=== PATIENT | female | born 1990 | race Caucasian/White ===

== ENCOUNTER 2018-06-16 14:17 | Emergency (ER) | payer OTHER ==
--- NOTE | 2018-06-16 15:21 | ER Document Report ---
ED Medical Screen (RME) - General Chief Complaint: Vaginal Bleeding Stated Complaint: VAGINAL BLEEDING Time Seen by Provider: 06/16/18 15:18 Mode of Arrival: Ambulatory Information source: Patient - HPI Patient complains to provider of: bleeding in Onset: Yesterday - pt is approx 6 wks who started with vaginal bleeding yesterday - Related Data Allergies/Adverse Reactions: No Known Allergies Allergy (Unverified 06/16/18 14:18) Past Medical History - Social History Chew tobacco use (# tins/day): No Frequency of alcohol use: None Drug Abuse: None Renal/ Medical History: Denies: Hx Peritoneal Dialysis Past Surgical History: Reports: Hx Gynecologic Surgery, Hx Oral Surgery Physical Exam - Vital signs Vitals: Temp Pulse Resp BP Pulse Ox 98.4 F 84 16 122/70 100 06/16/18 14:35 06/16/18 14:35 06/16/18 14:35 06/16/18 14:35 06/16/18 14:35 Course - Vital Signs Vital signs: Temp Pulse Resp BP Pulse Ox 98.4 F 84 16 122/70 100 06/16/18 14:35 06/16/18 14:35 06/16/18 14:35 06/16/18 14:35 06/16/18 14:35
[2018-06-16 15:51] LABS: ABSOLUTE EOSINOPHILS # (AUTO) 0.1 10^3/uL (0.0-0.6); ABSOLUTE LYMPHOCYTES (AUTO) 2.6 10^3/uL (0.5-4.7); ABSOLUTE MONOCYTES (AUTO) 0.4 10^3/uL (0.1-1.4); BASOPHILS % (AUTO) 0.4 % (0-2); EOSINOPHILS % (AUTO) 0.9 % (0-6); HEMATOCRIT 40.5 % (36.0-47.0); HEMOGLOBIN 14.5 g/dL (12.0-15.5); LYMPHOCYTES % (AUTO) 28.3 % (13-45); MEAN CORPUSCULAR HEMOGLOBIN 33.2 pg (27.0-33.4); MEAN CORPUSCULAR HGB CONC 35.7 g/dL (32.0-36.0); MEAN CORPUSCULAR VOLUME 93 fl (80-97); MONOCYTES % (AUTO) 4.2 % (3-13); PLATELET COUNT 241 10^3/uL (150-450); RED BLOOD COUNT 4.36 10^6/uL (3.72-5.28); RED CELL DISTRIBUTION WIDTH 13.2 % (11.5-14.0); SEGMENTED NEUTROPHILS % (AUTO) 66.2 % (42-78); TOTAL CELLS COUNTED % (AUTO) 100 %; WHITE BLOOD COUNT 9.1 10^3/uL (4.0-10.5)
[2018-06-16 16:02] LABS: APPEARANCE,URINE SLIGHTLY-CLOUDY; BILIRUBIN,URINE NEGATIVE (NEGATIVE); COLOR,URINE YELLOW; GLUCOSE, URINE NEGATIVE (NEGATIVE); KETONES,URINE NEGATIVE (NEGATIVE); LEUKOCYTE ESTERASE,URINE NEGATIVE (NEGATIVE); NITRITE,URINE NEGATIVE (NEGATIVE); PROTEIN,URINE NEGATIVE (NEGATIVE); URINE SPECIFIC GRAVITY 1.016; UROBILINOGEN,URINE NEGATIVE mg/dL (<2.0)
[2018-06-16 16:07] LABS: ALANINE AMINOTRANSFERASE 22 U/L (9-52); ALBUMIN 5.1 g/dL (3.5-5.0); ALKALINE PHOSPHATASE 39 U/L (38-126); ANION GAP 12 (5-19); ASPARTATE AMINO TRANSFERASE 18 U/L (14-36); BILIRUBIN,DIRECT 0.2 mg/dL (0.0-0.4); BILIRUBIN,TOTAL 0.9 mg/dL (0.2-1.3); BLOOD UREA NITROGEN 10 mg/dL (7-20); CALCIUM 10.3 mg/dL (8.4-10.2); CARBON DIOXIDE 25 mmol/L (22-30); CHLORIDE 103 mmol/L (98-107); GLUCOSE 88 mg/dL (75-110); POTASSIUM 3.9 mmol/L (3.6-5.0); SODIUM 140.4 mmol/L (137-145); TOTAL PROTEIN 8.1 g/dL (6.3-8.2)
--- NOTE | 2018-06-16 16:14 | RADIOLOGY REPORT (SQ) ---
EXAM DESCRIPTION: U/S OB TRANSVAG W/DOPPLER COMPLETED DATE/TIME: 06/16/2018 3:59 pm REASON FOR STUDY: bleeding in COMPARISON: None. TECHNIQUE: Endovaginal static and realtime grayscale images acquired of the pelvis. Additional selec ramya spectral and color Doppler images recorded. All images stored on PACs. bHCG: Pending CLINICAL DATES: Last menses 05/18/2018 LIMITATIONS: None. FINDINGS: Under intrauterine gestational sac is present with decidual reaction. Embryo and yolk sac not identified. By mean sac diameter, estimated gestational age is 5 weeks 3 days. This is concord ant with last menstrual period. SURVEY: Not performed AMNIOTIC FLUID: Adequate amount. PLACENTA: Not yet developed due to early gestation. SUBCHORIONIC BLEED: Not identified SIZE OF BLEED: Not applicable. UTERUS: No masses. No anomalies. Uterus is 10 x 5 x 6 cm in size CERVICAL LENGTH: 3 cm Closed. RIGHT ADNEXA: Normal ovary with normal vascular flow. Right ovary 2.8 x 2.7 x 2.8 cm in size. No ad nexal free fluid.No adnexal masses. LEFT ADNEXA: Normal ovary with normal vascular flow. Left ovary 3.6 x 3.1 x 2.9 cm in size. 15 mm h emorrhagic cyst left ovary likely the corpus luteum. No adnexal free fluid.No adnexal masses. FREE FLUID: None. OTHER: No other significant finding. IMPRESSION: Intrauterine gestational sac with surrounding decidual reaction, estimated age by mean s ac diameter is 5 weeks 3 days. Probable left ovary corpus luteum Trimester of : First - 0 to 13 weeks. TECHNICAL DOCUMENTATION: JOB ID: [id number] [employer]- All Rights Reserved rev Reading location - IP/workstation name: [email or web address]
[2018-06-16 17:06] VITALS: BP 112/74
--- NOTE | 2018-07-07 10:17 | ER Document Report ---
ED GI/ - General Chief Complaint: Vaginal Bleeding Stated Complaint: VAGINAL BLEEDING Time Seen by Provider: 06/16/18 15:18 Mode of Arrival: Ambulatory - [facility] Patient complains to provider of: - Pt is approx 6 wks who noticed some vaginal bleeding yesterday. Denies pain - Related Data Allergies/Adverse Reactions: No Known Allergies Allergy (Unverified 06/16/18 14:18) Past Medical History - General Information source: Patient - Social History Smoking Status: Never Smoker Chew tobacco use (# tins/day): No Frequency of alcohol use: None Drug Abuse: None Family History: None Patient has suicidal ideation: No Patient has homicidal ideation: No Renal/ Medical History: Denies: Hx Peritoneal Dialysis Past Surgical History: Reports: Hx Gynecologic Surgery, Hx Oral Surgery Review of Systems - Review of Systems Constitutional: No symptoms reported EENT: No symptoms reported Cardiovascular: No symptoms reported Respiratory: No symptoms reported Gastrointestinal: No symptoms reported Female Genitourinary: See HPI, , Vaginal bleeding -: Yes All other systems reviewed and negative Physical Exam - Vital signs Vitals: Temp Pulse Resp BP Pulse Ox 98.4 F 84 16 122/70 100 06/16/18 14:35 06/16/18 14:35 06/16/18 14:35 06/16/18 14:35 06/16/18 14:35 - General General appearance: Appears well In distress: None - Respiratory Respiratory status: No respiratory distress Breath sounds: Normal - Cardiovascular Rhythm: Regular Heart sounds: Normal auscultation - Abdominal Distension: No distension Tenderness: Nontender Organomegaly: No organomegaly - Genitourinary External exam: Other Speculum exam: Other Course - Vital Signs Vital signs: Temp Pulse Resp BP Pulse Ox 97.9 F 68 16 112/74 100 06/16/18 16:58 06/16/18 16:58 06/16/18 16:58 06/16/18 16:58 06/16/18 16:58 - Laboratory Result Diagrams: 06/16/18 15:30 06/16/18 15:30 Laboratory results interpreted by me: 06/16/18 06/16/18 15:30 15:30 Calcium 10.3 H Albumin 5.1 H Beta HCG, Quant 2349.70 H Urine Ascorbic Acid 40 H - Diagnostic Test Radiology reviewed: Reports reviewed - normal iup Discharge - Discharge Clinical Impression: Threatened , Vaginal bleeding in Condition: Stable Disposition: HOME, SELF-CARE Instructions: Bleeding During Early ([facility]), Ob-Environmental Construction Engineer Doctors, ([facility]), Rhogam ([facility]), Threatened Miscarriage ([facility]) Additional Instructions: rest, return for increased bleeding or pain Referrals: STEVEN BARAJAS MD [ACTIVE STAFF] - Follow up as needed
== END 2018-06-16 17:06 | disposition home or self-care (01) ==
LOC: ER 14:17
DX: O20.0 Threatened abortion (principal); Z3A.00 Weeks of gestation of pregnancy not specified
CPT/HCPCS: 99284; 96372; 86900; 86901; 36415; 86850; 84702; 85025; 80053; 81001; 76817; 93976; J2790

== ENCOUNTER 2018-06-23 21:08 | Emergency (ER) | payer OTHER ==
[2018-06-23 22:30] LABS: ABSOLUTE EOSINOPHILS # (AUTO) 0.1 10^3/uL (0.0-0.6); ABSOLUTE LYMPHOCYTES (AUTO) 2.3 10^3/uL (0.5-4.7); ABSOLUTE MONOCYTES (AUTO) 0.4 10^3/uL (0.1-1.4); ABSOLUTE NEUT (AUTO) 5.5 10^3/uL (1.7-8.2); BASOPHILS % (AUTO) 0.4 % (0-2); EOSINOPHILS % (AUTO) 1.4 % (0-6); HEMATOCRIT 37.8 % (36.0-47.0); HEMOGLOBIN 13.5 g/dL (12.0-15.5); LYMPHOCYTES % (AUTO) 27.7 % (13-45); MEAN CORPUSCULAR HEMOGLOBIN 33.2 pg (27.0-33.4); MEAN CORPUSCULAR HGB CONC 35.6 g/dL (32.0-36.0); MEAN CORPUSCULAR VOLUME 93 fl (80-97); MONOCYTES % (AUTO) 4.6 % (3-13); PLATELET COUNT 230 10^3/uL (150-450); RED BLOOD COUNT 4.05 10^6/uL (3.72-5.28); RED CELL DISTRIBUTION WIDTH 12.9 % (11.5-14.0); SEGMENTED NEUTROPHILS % (AUTO) 65.9 % (42-78); TOTAL CELLS COUNTED % (AUTO) 100 %; WHITE BLOOD COUNT 8.3 10^3/uL (4.0-10.5)
[2018-06-23 22:50] LABS: ALANINE AMINOTRANSFERASE 12 U/L (9-52); ALBUMIN 4.9 g/dL (3.5-5.0); ALKALINE PHOSPHATASE 44 U/L (38-126); ANION GAP 14 (5-19); ASPARTATE AMINO TRANSFERASE 17 U/L (14-36); BILIRUBIN,DIRECT 0.1 mg/dL (0.0-0.4); BILIRUBIN,TOTAL 0.5 mg/dL (0.2-1.3); BLOOD UREA NITROGEN 11 mg/dL (7-20); CALCIUM 9.8 mg/dL (8.4-10.2); CARBON DIOXIDE 24 mmol/L (22-30); CHLORIDE 101 mmol/L (98-107); GLUCOSE 89 mg/dL (75-110); LIPASE 245.4 U/L (23-300); SODIUM 138.7 mmol/L (137-145); TOTAL PROTEIN 7.7 g/dL (6.3-8.2)
--- NOTE | 2018-06-23 23:22 | RADIOLOGY REPORT (SQ) ---
CLINICAL HISTORY: eval possible ongoing ab COMPARISON: None. TECHNIQUE: US TRANSVAGINAL, US TRANSVAGINAL on 06/23/2018 10:20 PM CDT FINDINGS: Cervix is closed measuring 7 cm. Uterus contains a gestational sac as well as a pole which measures 0.43cm, corresponding to six weeks one day. heart tones are present with a rate of 117 bpm. Ovaries are unremarkable with patent flow bilaterally. IMPRESSION: Single live intrauterine gestation measuring six weeks one day with a heart rate of 117 bpm.
--- NOTE | 2018-06-23 23:48 | ER Document Report ---
ED General - General Chief Complaint: Vag Bleeding, +preg <12wks Stated Complaint: VAGINAL BLEEDING Time Seen by Provider: 06/23/18 22:19 Notes: Patient is a 27-year-old female at approximately 6 weeks by LMP who presents with heavy vaginal bleeding that started approximately 3 hours prior to arrival. She denies any associated abdominal pain. She was seen in the emergency department approximately 1 week ago for the same, given RhoGam as she is Rh-. She states that she had not had any additional bleeding until tonight. She has not established care for this . Nothing seems to improve or worsen her symptoms. She denies fever or constitutional symptoms. No dysuria. TRAVEL OUTSIDE OF THE [place] IN LAST 30 DAYS: No - Related Data Allergies/Adverse Reactions: No Known Allergies Allergy (Unverified 06/16/18 14:18) Past Medical History - General Information source: Patient - Social History Smoking Status: Never Smoker Frequency of alcohol use: None Drug Abuse: None Lives with: Family Family History: Reviewed & Not Pertinent Patient has suicidal ideation: No Patient has homicidal ideation: No Renal/ Medical History: Denies: Hx Peritoneal Dialysis Past Surgical History: Reports: Hx Gynecologic Surgery, Hx Oral Surgery Review of Systems - Review of Systems Notes: Constitutional: Negative for fever. HENT: Negative for sore throat. Eyes: Negative for visual changes. Cardiovascular: Negative for chest pain. Respiratory: Negative for shortness of breath. Gastrointestinal: Negative for abdominal pain, vomiting or diarrhea. Genitourinary: Positive for vaginal bleeding Musculoskeletal: Negative for back pain. Skin: Negative for rash. Neurological: Negative for headaches, weakness or numbness. 10 point ROS negative except as marked above and in HPI. Physical Exam - Vital signs Vitals: Temp Pulse Resp BP Pulse Ox 99.0 F 67 18 126/69 H 100 06/23/18 21:33 06/23/18 21:33 06/23/18 21:33 06/23/18 21:33 06/23/18 21:33 Interpretation: Normal Notes: PHYSICAL EXAMINATION: GENERAL: Well-appearing, well-nourished and in no acute distress. HEAD: Atraumatic, normocephalic. EYES: Pupils equal round and reactive to light, extraocular movements intact, sclera anicteric, conjunctiva are normal. ENT: nares patent, oropharynx clear without exudates. Moist mucous membranes. NECK: Normal range of motion, supple without lymphadenopathy LUNGS: Breath sounds clear to auscultation bilaterally and equal. No wheezes rales or rhonchi. HEART: Regular rate and rhythm without murmurs ABDOMEN: Soft, nontender, normoactive bowel sounds. No guarding, no rebound. No masses appreciated. EXTREMITIES: Normal range of motion, no pitting or edema. No cyanosis. NEUROLOGICAL: No focal neurological deficits. Moves all extremities spontaneously and on command. PSYCH: Normal mood, normal affect. SKIN: Warm, Dry, normal turgor, no rashes or lesions noted. Course - Re-evaluation Re-evalutation: 06/23/18 23:47 Patient presents with a mild amount of vaginal bleeding in the setting of a first trimester . Ultrasound does demonstrate a viable intrauterine with active heart rate. No active bleeding at time of presentation. She is Rh negative but has already received RhoGam within the past 12 weeks. I did confirm with the ROLLER INSPECTOR AND MENDER that Rhogam does not need to be readministered today patient's abdominal exam is otherwise benign without any focal tenderness. I do not suspect an acute appendicitis, pyelonephritis, cystitis, or bowel obstruction. At this time will discharge with return precautions and follow-up recommendations. Verbal discharge instructions given a the bedside and opportunity for questions given. Medication warnings reviewed. Patient is in agreement with this plan and has verbalized understanding of return precautions and the need for primary care follow-up in the next 24-72 hours. - Vital Signs Vital signs: Temp Pulse Resp BP Pulse Ox 98.0 F 75 18 118/67 100 06/24/18 00:16 06/24/18 00:16 06/24/18 00:16 06/24/18 00:16 06/24/18 00:16 - Laboratory Result Diagrams: 06/23/18 22:06 06/23/18 22:06 Laboratory results interpreted by me: 06/23/18 22:06 Beta HCG, Quant 97050.00 H - Diagnostic Test Radiology reviewed: Reports reviewed Discharge - Discharge Clinical Impression: Threatened , Bleeding in early Condition: Good Disposition: HOME, SELF-CARE Additional Instructions: Your ultrasound today shows a living intrauterine . Please follow closely with your primary care ROLLER INSPECTOR AND MENDER. Please return if you develop severe abdominal pain, bleeding that goes through more than 2 pads for more than 2 hours, pass out, or have any other symptoms that are concerning to you. Please follow-up closely with your OBGYN regarding todays visit. Forms: Return to School, Return to Work Referrals: OSCAR DYSON PA-C [Primary Care Provider] - Follow up as needed
[2018-06-24 00:17] VITALS: BP 118/67
== END 2018-06-24 00:20 | disposition home or self-care (01) ==
LOC: ER 21:08
DX: O20.0 Threatened abortion (principal); Z3A.01 Less than 8 weeks gestation of pregnancy
CPT/HCPCS: 36415; 76817; 80053; 83690; 84702; 85025; 99284

== ENCOUNTER 2018-10-12 12:50 | Emergency (ER) | payer OTHER ==
[2018-10-12 13:36] VITALS: BP 116/61
== END 2018-10-12 14:21 | disposition left against medical advice (07) ==
LOC: EDSTATUS 12:50 → ER 12:50
DX: Z53.21 Procedure and treatment not carried out due to patient leaving prior to being seen by health care provider (principal)

== ENCOUNTER → 2018-10-12 | Outpatient (CLI) | payer OTHER ==
--- NOTE | 2018-10-12 16:04 | RADIOLOGY REPORT (SQ) ---
EXAM DESCRIPTION: VENOUS UNILATERAL LOWER COMPLETED DATE/TIME: 10/12/2018 3:52 pm REASON FOR STUDY: LLE PAIN AND REDNESS M79.605 PAIN IN LEFT LEG COMPARISON: None. TECHNIQUE: Dynamic and static hanks scale and color images acquired of the left leg venous system. Se lected spectral images acquired with additional compression and augmentation maneuvers. The contralat eral common femoral vein and saphenofemoral junction were also imaged. Images stored on PACS. LIMITATIONS: None. FINDINGS: COMMON FEMORAL: Normal phasicity, compression and augmentation. No visualized echogenic ma terial on hanks scale. No defects on color images. FEMORAL: Normal compression and augmentation. No visualized echogenic material on hanks scale. No defe cts on color images. POPLITEAL: Normal compression, augmentation. No visualized echogenic material on hanks scale. No defec ts on color images. CALF VESSELS: Normal compression, augmentation. No visualized echogenic material on hanks scale. No de fects on color images. GSV and SSV: Normal compression, augmentation. No visualized echogenic material on hanks scale. No def ects on color images. ANY DEEP VENOUS INSUFFICIENCY: Not evaluated. ANY EVIDENCE OF POPLITEAL CYST: No. OTHER: No other significant finding. CONTRALATERAL COMMON FEMORAL VEIN AND SAPHENOFEMORAL JUNCTION: Normal phasicity, compression and augmentation. No visualized echogenic material on hanks scale. No de fects on color images. IMPRESSION: NO EVIDENCE DVT OR SVT IN THE LEFT LEG. TECHNICAL DOCUMENTATION: JOB ID: [id number] [employer]- All Rights Reserved Reading location - IP/workstation name: [email or web address]
== END ==
LOC: SP 16:18
PROVIDERS: ATTEND Specialist
DX: M79.605 Pain in left leg (principal)
CPT/HCPCS: 93971

== ENCOUNTER 2018-12-22 15:36 | Outpatient (CLI) | payer OTHER ==
[2018-12-22 16:24] LABS: APPEARANCE,URINE CLOUDY; BILIRUBIN,URINE NEGATIVE (NEGATIVE); COLOR,URINE YELLOW; GLUCOSE, URINE NEGATIVE (NEGATIVE); KETONES,URINE NEGATIVE (NEGATIVE); LEUKOCYTE ESTERASE,URINE LARGE (NEGATIVE); NITRITE,URINE NEGATIVE (NEGATIVE); PROTEIN,URINE NEGATIVE (NEGATIVE); URINE SPECIFIC GRAVITY 1.008; UROBILINOGEN,URINE NEGATIVE mg/dL (<2.0)
[2018-12-22 16:35] LABS: URINE AMPHETAMINES SCREEN NEGATIVE; URINE BARBITURATES SCREEN NEGATIVE; URINE BENZODIAZEPINES SCREEN NEGATIVE; URINE COCAINE SCREEN NEGATIVE; URINE MARIJUANA (THC) SCREEN NEGATIVE; URINE METHADONE SCREEN NEGATIVE; URINE PHENCYCLIDINE SCREEN NEGATIVE
--- NOTE | 2018-12-22 16:50 | RADIOLOGY REPORT (SQ) ---
EXAM DESCRIPTION: U/S OB LIMITED COMPLETED DATE/TIME: 12/22/2018 4:41 pm REASON FOR STUDY: Cervical length to r/o labor COMPARISON: None. TECHNIQUE: Limited transvaginal grayscale ultrasound for evaluation of specific requested obstetrica l parameters. LIMITATIONS: None. FINDINGS: CERVICAL LENGTH: 3.6 cm Closed. CAMPOS: 7.1 cm. FHR: 163 beats per minute. PRESENTATION: Cephalic. PLACENTA: Anterior ANATOMY: Not assessed OTHER: No other significant findings. IMPRESSION: LIMITED OBSTETRICAL ULTRASOUND WITH MEASURED PARAMETERS DELINEATED ABOVE. Trimester of : Third trimester - 28 weeks to delivery. TECHNICAL DOCUMENTATION: JOB ID: [id number] [employer]- All Rights Reserved Reading location - IP/workstation name: [email or web address]
--- NOTE | 2018-12-22 17:11 | Non Stress Test Report ---
Non Stress Test Datetime Report Generated by CPN: 12/22/2018 17:10 DEMOGRAPHIC EGA NST: 32.3 INDICATION Indication for Study: Ordered by Provider MONITORING Monitor Explained: Monitor Explained; Test Explained; Patient Verbalized Understanding Time on Monitor: 12/22/2018 15:50 Time off Monitor: 12/22/2018 16:15 NST Duration: 25 NST INTERVENTIONS NST Interventions: PO Hydration Physician Notified NST: Dr. Humphries BABY A: [id number] BABY A Movement : Present Contraction Frequency : None FHR Baseline : 140 Accelerations : 15X15 Decelerations : None Variability : Moderate 6-25bpm NST Review: Meets Criteria for Reactive NST NST Review and Verified By : NEPTALI LUO RN NST Results: Reactive NST REPORT Report Trigger: Send Report
== END 2018-12-22 17:19 | disposition home or self-care (01) ==
LOC: LC 15:36
PROVIDERS: ATTEND Obstetrics & Gynecology Gynecology
PROC: 4A1HXCZ Monitoring of Products of Conception, Cardiac Rate, External Approach (ICD-10-PCS; principal; 2018-12-22)
DX: O47.03 False labor before 37 completed weeks of gestation, third trimester (principal); Z3A.32 32 weeks gestation of pregnancy
CPT/HCPCS: 59025; 76815; 80307; 81001

== ENCOUNTER 2019-02-13 10:13 | Outpatient (CLI) | payer OTHER ==
[2019-02-13 10:42] LABS: APPEARANCE,URINE CLOUDY; BILIRUBIN,URINE NEGATIVE (NEGATIVE); COLOR,URINE YELLOW; GLUCOSE, URINE NEGATIVE (NEGATIVE); KETONES,URINE NEGATIVE (NEGATIVE); LEUKOCYTE ESTERASE,URINE SMALL (NEGATIVE); NITRITE,URINE NEGATIVE (NEGATIVE); PROTEIN,URINE NEGATIVE (NEGATIVE); URINE SPECIFIC GRAVITY 1.013; UROBILINOGEN,URINE NEGATIVE mg/dL (<2.0)
[2019-02-13 11:03] LABS: URINE AMPHETAMINES SCREEN NEGATIVE; URINE BARBITURATES SCREEN NEGATIVE; URINE BENZODIAZEPINES SCREEN NEGATIVE; URINE COCAINE SCREEN NEGATIVE; URINE MARIJUANA (THC) SCREEN NEGATIVE; URINE METHADONE SCREEN NEGATIVE; URINE PHENCYCLIDINE SCREEN NEGATIVE
--- NOTE | 2019-02-13 11:13 | Non Stress Test Report ---
Non Stress Test Datetime Report Generated by CPN: 02/13/2019 11:13 DEMOGRAPHIC Test Number: 3 EGA NST: 40.1 INDICATION Indication for Study: Ordered by Provider MONITORING Monitor Explained: Monitor Explained; Test Explained; Patient Verbalized Understanding Time on Monitor: 02/13/2019 10:31 Time off Monitor: 02/13/2019 10:53 NST Duration: 22 NST INTERVENTIONS NST Interventions: PO Hydration Physician Notified NST: K. Cam, CNM BABY A: [id number] BABY A Movement : Present Contraction Frequency : none FHR Baseline : 140 Accelerations : 15X15 Decelerations : None Variability : Moderate 6-25bpm NST Review: Meets Criteria for Reactive NST NST Review and Verified By : Tennille Camp RNC NST Results: Reactive NST REPORT Report Trigger: Send Report
== END 2019-02-13 11:01 | disposition home or self-care (01) ==
LOC: LC 10:13
PROVIDERS: ATTEND Student in an Organized Health Care Education/Training Program
PROC: 4A1HXCZ Monitoring of Products of Conception, Cardiac Rate, External Approach (ICD-10-PCS; principal; 2019-02-13)
DX: O47.1 False labor at or after 37 completed weeks of gestation (principal); O48.0 Post-term pregnancy; Z3A.40 40 weeks gestation of pregnancy
CPT/HCPCS: 59025; 80307; 81005; 84112

== ENCOUNTER 2019-02-15 09:02 | Inpatient (IN) | payer OTHER ==
[2019-02-15] MEDS ORDERED: RINGERS SOLUTION,LACTATED 300 ML IV ONE (09:26)
[2019-02-15] MEDS ORDERED: OXYTOCIN/NORMAL SALINE 20 UNIT/1,000 ML RTUINJ IV PRN ×2 (09:26→17:05)
[2019-02-15] MEDS ORDERED: OXYTOCIN 10 UNIT/ML VIAL ONE (10:03)
[2019-02-15] MEDS ORDERED: MISOPROSTOL 0.2 MG TABLET ONE (10:04)
[2019-02-15] MEDS ORDERED: OXYTOCIN/NORMAL SALINE 20 UNIT/1,000 ML RTUINJ ONE (10:04)
[2019-02-15] MEDS ORDERED: LIDOCAINE 1% INJ-PF (10 MG/ML) 30 ML SDV ONE (10:04)
[2019-02-15 10:07] LABS: ABSOLUTE EOSINOPHILS # (AUTO) 0.1 10^3/uL (0.0-0.6); ABSOLUTE LYMPHOCYTES (AUTO) 1.6 10^3/uL (0.5-4.7); ABSOLUTE MONOCYTES (AUTO) 0.4 10^3/uL (0.1-1.4); ABSOLUTE NEUT (AUTO) 7.3 10^3/uL (1.7-8.2); BASOPHILS % (AUTO) 0.5 % (0-2); EOSINOPHILS % (AUTO) 0.7 % (0-6); HEMATOCRIT 34.2 % (36.0-47.0); HEMOGLOBIN 12.1 g/dL (12.0-15.5); MEAN CORPUSCULAR HGB CONC 35.5 g/dL (32.0-36.0); MEAN CORPUSCULAR VOLUME 96 fl (80-97); MONOCYTES % (AUTO) 4.4 % (3-13); PLATELET COUNT 139 10^3/uL (150-450); RED BLOOD COUNT 3.57 10^6/uL (3.72-5.28); SEGMENTED NEUTROPHILS % (AUTO) 77.4 % (42-78); TOTAL CELLS COUNTED % (AUTO) 100 %; WHITE BLOOD COUNT 9.4 10^3/uL (4.0-10.5)
[2019-02-15 10:25] LABS: APPEARANCE,URINE CLEAR; BILIRUBIN,URINE NEGATIVE (NEGATIVE); COLOR,URINE YELLOW; GLUCOSE, URINE NEGATIVE (NEGATIVE); KETONES,URINE NEGATIVE (NEGATIVE); LEUKOCYTE ESTERASE,URINE NEGATIVE (NEGATIVE); NITRITE,URINE NEGATIVE (NEGATIVE); PROTEIN,URINE NEGATIVE (NEGATIVE); URINE SPECIFIC GRAVITY 1.016; UROBILINOGEN,URINE NEGATIVE mg/dL (<2.0)
[2019-02-15] MEDS: RINGERS SOLUTION,LACTATED 1,000 ML IV PRN ×2 (10:35→14:43)
[2019-02-15 10:43] LABS: URINE AMPHETAMINES SCREEN NEGATIVE; URINE BARBITURATES SCREEN NEGATIVE; URINE BENZODIAZEPINES SCREEN NEGATIVE; URINE COCAINE SCREEN NEGATIVE; URINE MARIJUANA (THC) SCREEN NEGATIVE; URINE METHADONE SCREEN NEGATIVE; URINE PHENCYCLIDINE SCREEN NEGATIVE
--- NOTE | 2019-02-15 11:35 | Admission Physical ---
Datetime Report Generated by CPN: 02/15/2019 11:35 CURRENT ADMISSION Hx Assessment: The History has been Reviewed and is Current Chief Complaint: Scheduled Induction of Labor Indication for Induction: Postterm Admit Impression : Postterm, Intrauterine ; No Active Labor; Intact Membranes; Induction of Labor Admit Plan: Admit to Unit; Initiate Labor Induction Protocol ALLERGIES Medication Allergies: No Medication Allergies: cinnamon (02/15/2019); peach (02/15/2019) Latex: No Latex Allergies Food Allergies: CINNAMON, PEACHES OBSTETRICAL HISTORY EDC: 02/12/2019 00:00 : 5 Para: 1 Term: 1 : 0 SAB: 3 IAB: 0 Ectopic: 0 Livin Cesareans: 0 VBACs: 0 Multiple Births: 0 Gestational Diabetes: No Rh Sensitization: No Incompetent Cervix: No JD: No Infertility: No ART Treatment: No Uterine Anomaly: No IUGR: No Hx Previous C/S: No Macrosomia: No Hx Loss/Stillborn: No PIH: No Hx : No Placenta Previa/Abruption: No Depression/PP Depression: No PTL/PROM: No Post Hemorrhage: No Current Procedures: Ultrasound; NST Obstetrical History Comments: G1 - 2009, 38 weeks, baby boy G2 - Current SEE RECORDS Alcohol: No Marijuana : No Cocaine: No Other Illicit Drugs: No Cigarettes: Never Smoker. [id number] MEDICAL HISTORY Diabetes: No Blood Transfusion: No Pulmonary Disease (Asthma, TB): No Breast Disease: No Hypertension: No Gastroenterology Nurse Practitioner Surgery: No Heart Disease: No Hosp/Surgery: No Autoimmune Disorder: No Anesthetic Complications: No Kidney Disease: No Abnormal Pap Smear: Yes Neuro/Epilepsy: No Psychiatric Disorders: No Other Medical Diseases: No Hepatitis/Liver Disease: No Significant Family History: No Varicosities/Phlebitis: No Trauma/Violence : No Thyroid Dysfunction: No Medical History Comments: Abnormal pap 2017 INFECTIOUS HISTORY Gonorrhea: No Genital Herpes: No Chlamydia: Yes Tuberculosis: No Syphilis: No Hepatitis: No HIV/AIDS Exposure: No Rash or Viral Illness: No HPV: No Infectious History Comments: Chlamydia 4-5 years ago PHYSICAL EXAM General: Normal HEENT: Deferred Neurologic: Normal Thyroid: Normal Heart: Normal Lungs: Normal Breast: Deferred Back: Normal Abdomen: Normal Genitourinary Exam: Normal Extremities: Deferred DTRs: Normal Pelvic Type: Adequate Physical Exam Comments: Low Vit D Desires BTL RH neg Vital Signs: Reviewed MEMBRANES Membranes: Intact FETUS A EGA: 40.3 Monitoring: External US Variability: Moderate 6-25bpm Decelerations: None FHR Category: Category I Admit Comment: admitted to LD for IOL for post dates Cat 1 strip, uc's q 3 min Discussed POC, does not want epidural, Pitocin infusing PLANS FOR LABOR AND DELIVERY Labor and Delivery: Plan Pain Management: None Feeding Preference: Breast Benefit of Breast Feed Discussed: Yes Circumcision: N/A INFORMED CONSENT Assignment: Emmett Humphries MD Signature: with User ID: [email or web address] : with User ID: [email or web address]
[2019-02-15] MEDS ORDERED: FENTANYL/BUPIVACAINE/NS/PF 300 MCG/150 ML RTUINJ EPI ONE (15:11)
[2019-02-15] MEDS ORDERED: EPHEDRINE SULFATE INJ 50 MG/1 ML AMPULE ONE (15:11)
[2019-02-15] MEDS ORDERED: BUPIVACAINE HCL 0.25 % INJ/PF (2.5 MG/1 ML) 30 ML VIAL ONE (15:11)
[2019-02-15] MEDS ORDERED: PROMETHAZINE HCL 25 MG SUPP.RECT PR PRN (17:05)
[2019-02-15] MEDS ORDERED: MAGNESIUM HYDROXIDE SUSP 30 ML UDCUP PO PRN (17:05)
[2019-02-15] MEDS ORDERED: DIBUCAINE 1% OINTMENT 56 GM TP PRN (17:05)
[2019-02-15] MEDS ORDERED: GLYCERIN/WITCH HAZEL LEAF 1 EACH MED..WIPE TP PRN (17:05)
[2019-02-15] MEDS ORDERED: ACETAMINOPHEN 650 MG SUPP.RECT PR PRN (17:05)
[2019-02-15] MEDS ORDERED: NA PHOS,M-B/NA PHOS,DI-BA (ADULT) 133 ML ENEMA PR PRN (17:05)
[2019-02-15] MEDS ORDERED: BENZOCAINE/MENTHOL AEROSOL SPRAY 56 ML TOP PRN (17:05)
[2019-02-15] MEDS ORDERED: DIPHENHYDRAMINE HCL 25 MG CAPSULE PO PRN (17:05)
[2019-02-15] MEDS ORDERED: DIPH/PERTUSS(ACELL)/TETANUS VAC/PF 0.5 ML SYR (>=10YO) IM PRN (17:05)
[2019-02-15] MEDS ORDERED: PROMETHAZINE HCL 25 MG TABLET PO PRN (17:05)
[2019-02-15] MEDS ORDERED: PSEUDOEPHEDRINE HCL 30 MG TABLET PO PRN (17:05)
[2019-02-15] MEDS ORDERED: MEASLES,MUMPS&RUBELLA VACC/PF 0.5 ML VIAL SUBCUT PRN (17:05)
[2019-02-15] MEDS ORDERED: PROMETHAZINE HCL INJ 25 MG/1 ML VIAL IV PRN (17:05)
[2019-02-15] MEDS ORDERED: PROMETHAZINE HCL 25 MG TABLET ONE (18:01)
--- NOTE | 2019-02-15 19:16 | Delivery Summary ---
Del Sum A-C Datetime Report Generated by CPN: 02/15/2019 19:16 DELIVERY PERSONNEL DELIVERY PERSONNEL: [id number] Delivery Doctor:: Jeny Sánchez CNM Nurse National Accounts Sales Certified:: Jeny Sánchez CNM Labor and Delivery Nurse:: MARCELLA Miranda Labor and Delivery Nurse:: MARCELLA Garnica Pharmacy Tech/SUPERVISOR [employer]: Carolyn Semar, IRONWORKER WIRE FENCE ERECTOR MATERNAL INFORMATION Delivery Anesthesia: Epidural Medications After Delivery: Pitocin Drip 20 Units/1000ml NSS Estimated Blood Loss (ml): 400 Maternal Complications: None Provider Comments: vible female from OA to ELVIA, delivered post arm and then delivery of , placed on mothers abd, cord clamped and cut by FOB, cord blood obtained, spont delivery of grossly nl intact placenta, 3 VC, superficial lacerations, FFFM, uterine masssage and IV Pitocin, baby and mom remain in recovery in stable condition LABOR SUMMARY EDC: 02/12/2019 00:00 No. Babies in Womb: 1 Labor Anesthesia: Epidural LABOR INFORMATION Reason for Induction: Not Applicable Onset of Labor: 02/15/2019 11:00 Complete Dilatation: 02/15/2019 16:40 Oxytocin: Induction Group B Beta Strep: neg Antibiotics # of Doses: 0 Antibiotics Time of Last Dose: 0 Name of Antibiotic Given: 0 Steroids Given: None Reason Steroids Not Administered: Not Applicable MEMBRANES Membranes Rupture Method: Artificial Rupture of Membranes: 02/15/2019 14:49 Length of Rupture (hr): 1.98 Amniotic Fluid Color: Clear Amniotic Fluid Amount: Small Amniotic Fluid Odor: Normal STAGES OF LABOR Stage 1 hr: 5 Stage 1 min: 40 Stage 2 hr: 0 Stage 2 min: 8 Stage 3 hr: 0 Stage 3 min: 4 Total Time in Labor hr: 5 Total Time in Labor min: 52 VAGINAL DELIVERY Episiotomy: None Laceration #1: None Laceration Extension #1: N/A Laceration Repair: Not Applicable Sponge Count Correct: N/A BABY A INFORMATION Delivery Date/Time: 02/15/2019 16:48 Method of Delivery: Vaginal Born in Route : No : N/A Forceps: N/A Vacuum Extraction: N/A Shoulder Dystocia : No PRESENTATION/POSITION BABY A Presentation: Cephalic Cephalic Presentation: Vertex Vertex Position: Left Occipital Anterior Breech Presentation: N/A PLACENTA INFORMATION BABY A Placenta Delivery Time : 02/15/2019 16:52 Placenta Method of Delivery: Spontaneous Placenta Status: Delivered SCORES BABY A Heart Rate 1 min: >100 bpm Resp Effort 1 min: Good Cry Reflex Irritability 1 min: Cough or Sneeze or Pulls Away Muscle Tone 1 min: Active Motion Color 1 min: Blue/Pale Resuscitation Effort 1 min: Tactile Stimulation SCORE 1 MIN: 8 Heart Rate 5 min: >100 bpm Resp Effort 5 min: Good Cry Reflex Irritability 5 min: Cough or Sneeze or Pulls Away Muscle Tone 5 min: Active Motion Color 5 min: Body Arpin, Extremities Blue SCORE 5 MIN: 9 INFANT INFORMATION BABY A Gestational Age at Delivery: 40.3 Gestational Status: Full Term- 39- 40.6 Weeks Infant Outcome : Liveborn Infant Condition : Stable Infant Sex: Female IDENTIFICATION BABY A Verification Date/Time: 02/15/2019 17:05 ID Band Number: [id number] Mother's Name Verified: Yes RN Verifying Infant: Rosie Additional Verifying Personnel: Karine Ptits IRONWORKER WIRE FENCE ERECTOR CORD INFORMATION BABY A No. Cord Vessels: 3 Nuchal Cord : N/A Suction: Mouth; Nose ASSESSMENT BABY A Complications: None Physical Findings at Delivery: Molding of the Head Infant Respirations: Appears Normal Skin to Skin: Yes Grant Officer/ALS Called : No Infant Care By: Noe NARANJO Transferred To: Remains with Mother
--- NOTE | 2019-02-15 19:18 | Warning Signs in Babies ---
VOD Warning Signs Datetime Report Generated by [facility]: 02/15/2019 19:18 VOD#608 -Warning Signs in Babies: Viewed with Parent(s)/Family (02/15/2019 19:16:Elvi Newton RN)
[2019-02-15] MEDS: ACETAMINOPHEN WITH CODEINE #3 TABLET PO PRN (20:47)
[2019-02-15] MEDS: FAMOTIDINE 20 MG TABLET PO SCH (22:59)
[2019-02-15] MEDS: IBUPROFEN 800 MG TABLET PO SCH (22:59)
[2019-02-16] MEDS: IBUPROFEN 800 MG TABLET PO SCH ×3 (06:40→22:21)
[2019-02-16] MEDS: PRENATAL VITAMIN W DHA CAPSULE PO SCH (11:50)
[2019-02-16] MEDS: DOCUSATE SODIUM 100 MG CAPSULE PO SCH ×2 (11:50→19:01)
[2019-02-16] MEDS: SENNOSIDES/DOCUSATE 8.6-50 MG 1 EACH TABLET PO SCH (11:50)
[2019-02-16] MEDS: FAMOTIDINE 20 MG TABLET PO SCH ×2 (11:50→22:21)
[2019-02-16] MEDS: FERROUS SULFATE 325 MG TABLET PO SCH ×2 (11:50→19:01)
--- NOTE | 2019-02-16 15:47 | PDOC PROGRESS REPORT ---
Subjective-OB Progress Note for:: 02/16/19 Subjective: reports bleeding slowing, pain controlled with current meds. denies needs Physical Exam (OB) Vital Signs: Temp Pulse Resp BP Pulse Ox 98.5 F 73 16 119/80 100 02/16/19 07:59 02/16/19 07:59 02/16/19 07:59 02/16/19 07:59 02/16/19 07:59 Intake & Output 02/15/19 02/16/19 02/17/19 06:59 06:59 06:59 Intake Total 517 2160 Balance 517 2160 Weight 80.059 kg - Abdomen Description: Soft, Round Hernia Present: No Fundal Description: Firm, Midline Fundal Height: u/u - u/2 - Abdominal Distension: No distension Tenderness: Nontender - Extremities Lower extremities: Wilton's sign - neg Calf: Normal, Nontender Objective-Diagnostic Laboratory: 02/15/19 09:51 Assessment and Plan(PN) - Assessment and Plan (1) Delivery normal Is this a current diagnosis for this admission?: Yes - Time Spent with Patient Time with patient: Less than 15 minutes - Disposition Anticipated Discharge: Home Within: within 24 hours
[2019-02-16] MEDS: ACETAMINOPHEN WITH CODEINE #3 TABLET PO PRN (19:00)
[2019-02-17] MEDS: ACETAMINOPHEN WITH CODEINE #3 TABLET PO PRN ×2 (03:22→13:02)
[2019-02-17] MEDS: IBUPROFEN 800 MG TABLET PO SCH ×2 (06:48→13:02)
--- NOTE | 2019-02-17 09:13 | PDOC DISCHARGE SUMMARY ---
Final Diagnosis Discharge Date: 02/17/19 - Final Diagnosis (1) Delivery normal Is this a current diagnosis for this admission?: Yes Discharge Data - Discharge Medication Prescriptions: Ibuprofen [Motrin 800 mg Tablet] 800 mg PO Q8HP PRN #60 tablet PRN Reason: Home Medications: No122/Iron/Folic Acid [ Multi Tablet] 1 each PO DAILY 12/22/18 Ibuprofen [Motrin 800 mg Tablet] 800 mg PO Q8HP PRN #60 tablet 02/17/19 Procedures: NST Intrapartum Procedure(s): Spontaneous Vaginal Delivery - Diagnosis Test Laboratory: Temp Pulse Resp BP Pulse Ox 97.7 F 66 15 122/70 100 02/17/19 08:22 02/17/19 08:22 02/17/19 08:22 02/17/19 08:22 02/17/19 08:22 02/15/19 02/15/19 09:30 09:51 RBC 3.57 L Hgb 12.1 Hct 34.2 L Urine Opiates Screen NEGATIVE - Discharge information/Instructions Discharge Activity: Balance Activity w/Rest, Pelvic Rest Discharge Diet: Regular Disposition: HOME, SELF-CARE Follow up with: [facility] in: 4, Weeks
[2019-02-17 10:33] LABS: ABSOLUTE EOSINOPHILS # (AUTO) 0.2 10^3/uL (0.0-0.6); ABSOLUTE LYMPHOCYTES (AUTO) 1.8 10^3/uL (0.5-4.7); ABSOLUTE MONOCYTES (AUTO) 0.3 10^3/uL (0.1-1.4); ABSOLUTE NEUT (AUTO) 5.2 10^3/uL (1.7-8.2); BASOPHILS % (AUTO) 0.6 % (0-2); EOSINOPHILS % (AUTO) 2.6 % (0-6); HEMATOCRIT 31.4 % (36.0-47.0); HEMOGLOBIN 11.3 g/dL (12.0-15.5); LYMPHOCYTES % (AUTO) 23.9 % (13-45); MEAN CORPUSCULAR HEMOGLOBIN 34.4 pg (27.0-33.4); MEAN CORPUSCULAR HGB CONC 35.9 g/dL (32.0-36.0); MEAN CORPUSCULAR VOLUME 96 fl (80-97); MONOCYTES % (AUTO) 4.3 % (3-13); PLATELET COUNT 120 10^3/uL (150-450); RED BLOOD COUNT 3.28 10^6/uL (3.72-5.28); RED CELL DISTRIBUTION WIDTH 13.2 % (11.5-14.0); SEGMENTED NEUTROPHILS % (AUTO) 68.6 % (42-78); TOTAL CELLS COUNTED % (AUTO) 100 %; WHITE BLOOD COUNT 7.5 10^3/uL (4.0-10.5)
[2019-02-17] MEDS: PRENATAL VITAMIN W DHA CAPSULE PO SCH (12:57)
[2019-02-17] MEDS: FAMOTIDINE 20 MG TABLET PO SCH (12:57)
[2019-02-17] MEDS: DOCUSATE SODIUM 100 MG CAPSULE PO SCH (12:57)
[2019-02-17] MEDS: FERROUS SULFATE 325 MG TABLET PO SCH (12:57)
[2019-02-17] MEDS: SENNOSIDES/DOCUSATE 8.6-50 MG 1 EACH TABLET PO SCH (12:57)
[2019-02-17 13:44] VITALS: BP 122/72
== END 2019-02-17 15:00 | disposition home or self-care (01) | DRG 807 ==
LOC: LR 09:02 → 2S 19:55
PROVIDERS: ADMIT Obstetrics & Gynecology Gynecology; ATTEND Obstetrics & Gynecology Gynecology
PROC: 10E0XZZ Delivery of Products of Conception, External Approach (ICD-10-PCS; principal; 2019-02-15)
PROC: 10907ZC Drainage of Amniotic Fluid, Therapeutic from Products of Conception, Via Natural or Artificial Opening (ICD-10-PCS; 2019-02-15)
DX: O48.0 Post-term pregnancy (principal); O70.0 First degree perineal laceration during delivery; Z37.0 Single live birth; Z3A.40 40 weeks gestation of pregnancy; Z86.19 Personal history of other infectious and parasitic diseases
CPT/HCPCS: 36415; 80307; 81005; 85025; 86592; 86850; 86870; 86900; 86901; J2590; J3010; J3490

== ENCOUNTER 2019-05-02 07:40 | Day surgery (SDC) | payer OTHER ==
[2019-04-26 09:52] LABS: HEMATOCRIT 41.2 % (36.0-47.0); HEMOGLOBIN 14.3 g/dL (12.0-15.5); MEAN CORPUSCULAR HEMOGLOBIN 31.2 pg (27.0-33.4); MEAN CORPUSCULAR HGB CONC 34.8 g/dL (32.0-36.0); MEAN CORPUSCULAR VOLUME 90 fl (80-97); PLATELET COUNT 203 10^3/uL (150-450); RED BLOOD COUNT 4.59 10^6/uL (3.72-5.28); WHITE BLOOD COUNT 6.3 10^3/uL (4.0-10.5)
[2019-04-26 09:59] LABS: APPEARANCE,URINE CLEAR; BILIRUBIN,URINE NEGATIVE (NEGATIVE); COLOR,URINE YELLOW; GLUCOSE, URINE NEGATIVE (NEGATIVE); KETONES,URINE NEGATIVE (NEGATIVE); LEUKOCYTE ESTERASE,URINE TRACE (NEGATIVE); NITRITE,URINE NEGATIVE (NEGATIVE); PROTEIN,URINE 30 mg/dL (NEGATIVE); UROBILINOGEN,URINE NEGATIVE mg/dL (<2.0)
[~2019-05-02 07:40] MED LIST: LACTATED RINGERS 1000 ML IV PRN; LIDOCAINE 0.5% INJ-PF (5 MG/ML) 50 ML SDV SUBCUT PRN
[2019-05-02] MEDS ORDERED: MIDAZOLAM 2 MG/2 ML INJ ONE (09:27)
[2019-05-02] MEDS ORDERED: PROPOFOL INJ 200 MG/20 ML VIAL IV ONE (09:27)
[2019-05-02] MEDS ORDERED: FENTANYL CITRATE INJ/PF 100 MCG/2 ML AMPUL ONE ×2 (09:27→10:27)
[2019-05-02] MEDS ORDERED: MORPHINE SULFATE 10 MG/ML INJ IV PRN (10:10)
[2019-05-02] MEDS ORDERED: FENTANYL CITRATE INJ/PF 100 MCG/2 ML AMPUL IV PRN ×2 (10:10)
[2019-05-02] MEDS ORDERED: PROMETHAZINE HCL INJ 25 MG/1 ML VIAL IV PRN ×2 (10:10)
[2019-05-02] MEDS ORDERED: DIPHENHYDRAMINE HCL 50 MG/ML VIAL IV PRN (10:10)
[2019-05-02] MEDS ORDERED: MEPERIDINE HCL/PF INJ 25 MG/1 ML DISP.SYRIN IV PRN (10:10)
[2019-05-02] MEDS ORDERED: IBUPROFEN 800 MG TABLET PO PRN (10:11)
[2019-05-02] MEDS ORDERED: OXYCODONE-ACETAMINOPHEN 5-325 MG TABLET PO PRN ×2 (10:11)
[2019-05-02] MEDS ORDERED: KETOROLAC TROMETHAMINE INJ/PF 30 MG/1 ML SDV IV PRN (10:11)
[2019-05-02] MEDS ORDERED: RINGERS SOLUTION,LACTATED 1,000 ML IV PRN (10:11)
--- NOTE | 2019-05-02 10:15 | Operative Report ---
Operative Report DATE OF SURGERY: 05/02/19 PREOPERATIVE DIAGNOSIS: Patient desires surgical sterilization POSTOPERATIVE DIAGNOSIS: Same OPERATION: Laparoscopic tubal ligation with Filshie clips SURGEON: TOMAS ADHIKARI ANESTHESIA: GA TISSUE REMOVED OR ALTERED: Fallopian tubes COMPLICATIONS: None ESTIMATED BLOOD LOSS: Minimal INTRAOPERATIVE FINDINGS: Normal uterus tubes and ovaries PROCEDURE: Patient was taken the OR and placed in supine position. General anesthesia was induced. She was placed in a dorsolithotomy position using Mauro stirrups. Her vagina perineum and abdomen were prepared and draped in sterile fashion. She did not need catheterization as she voided just prior to the procedure. An incision was made at the umbilicus natural umbilical defect was identified and dilated with Nia clamp. Blunt port was placed. Laparoscopy confirmed appropriate placement. Pelvis was inspected and each tube was followed out to its fimbriated end. The Filshie clip was placed across each fallopian tube at the mid isthmic portion. There were no complications. The gas was allowed to escape from the abdomen. The scope and port were removed at the same time. The fascia at the umbilicus was closed with a 2-0 Vicryl suture and the skin was closed with a 4-0 undyed Vicryl suture. Patient was extubated in the OR and taken to recovery room stable condition.
--- NOTE | 2019-05-02 10:18 | Discharge Summary ---
Discharge Summary (SDC) - Discharge Final Diagnosis: Patient desires surgical sterilization. Date of Surgery: 05/02/19 Discharge Date: 05/02/19 Condition: Good Prescriptions: Oxycodone HCl/Acetaminophen [Percocet 5-325 mg Tablet] 1 tab PO Q4HP PRN #28 tablet PRN Reason: Referrals: OSCAR DYSON PA-C [Primary Care Provider] - Discharge Diet: Regular Discharge Activity: Activity As Tolerated Report the Following to Your Physician Immediately: Fever over 101 Degrees
[2019-05-02] MEDS: FENTANYL CITRATE INJ/PF 100 MCG/2 ML AMPUL IV PRN ×2 (10:43→11:15)
[2019-05-02] MEDS ORDERED: IBUPROFEN 800 MG TABLET ONE (11:01)
[2019-05-02] MEDS ORDERED: OXYCODONE-ACETAMINOPHEN 5-325 MG TABLET ONE (12:06)
[2019-05-02 14:12] VITALS: BP 118/60
[2019-05-02] MEDS ORDERED: KETOROLAC TROMETHAMINE 60 MG/2 ML SDV ONE (14:42)
[2019-05-02] MEDS ORDERED: DEXAMETHASONE SOD PHOSPHATE INJ 4 MG/1 ML VIAL ONE (14:42)
[2019-05-02] MEDS ORDERED: SUCCINYLCHOLINE CHLORIDE INJ 200 MG/10 ML VIAL ONE (14:42)
[2019-05-02] MEDS ORDERED: LIDOCAINE 2% INJ-PF (20 MG/ML) 2 ML AMPUL ONE (14:42)
[2019-05-02] MEDS ORDERED: METOCLOPRAMIDE HCL INJ/PF 10 MG/2 ML SDV ONE (14:42)
[2019-05-02] MEDS ORDERED: ONDANSETRON HCL INJ/PF 4 MG/2 ML SDV ONE (14:42)
== END 2019-05-02 13:10 | disposition home or self-care (01) ==
LOC: OROUT 07:40
PROVIDERS: ATTEND Obstetrics & Gynecology
DX: Z30.2 Encounter for sterilization (principal); Z67.21 Type B blood, Rh negative; E55.9 Vitamin D deficiency, unspecified; Z87.440 Personal history of urinary (tract) infections
CPT/HCPCS: 36415; 85027; 81005; 81025; 00851; 58671; J2250; J1100; J1885; J3010; J2765; J0330; J2405; J2704; J3490; 851